=== PATIENT | male | born 1975 | race Caucasian/White ===

== ENCOUNTER 2023-09-17 17:47 | Emergency (ER) | payer SELFPAY ==
--- NOTE | ~2023-09-17 | XR_ITS ---
EXAMINATION: XR chest 2V DATE: 09/17/2023 18:46 INDICATION: Chest pain TECHNIQUE: PA and lateral views of the chest were obtained. COMPARISON: None FINDINGS: The lungs are clear with no focal airspace opacities, pulmonary edema, pleural effusion or pneumothor ax. The cardiomediastinal silhouette is normal. Visualized bones and soft tissues are unremarkable. IMPRESSION: 1. No acute cardiopulmonary disease. Reviewed, dictated and finalized at location A.
--- NOTE | ~2023-09-17 | CT_ITS ---
EXAMINATION: CT brain wo con DATE: 09/17/2023 19:46 INDICATION: Seizure TECHNIQUE: Computed tomography (CT) of the head was performed without intravenous contrast. Sagittal and coronal reconstructions were performed. The mA was adjusted according to patient size. Iterative reconstruction technique was employed. The dose-length product was 756.67 mGy-cm. COMPARISON: None FINDINGS: No acute intracranial hemorrhage, acute infarction or abnormal extra axial fluid collection. Symmetri c prominence of the sulci and subarachnoid spaces overlying the convexities and about the cerebellum consistent with mild cerebral and cerebellar volume loss which is disproportionate for age. Ventricl es are normal and symmetric. No mass/mass effect. Prominent mucous retention cyst in the right maxill odette sinus. The orbits and mastoid air cells are normal. IMPRESSION: 1. Mild diffuse volume loss of indeterminate etiology which is disproportionate for age. No acute int racranial process. Reviewed, dictated and finalized at location A. IMPRESSION: 1. Mild diffuse volume loss of indeterminate etiology which is disproportionate for age. No acute intracranial process.
[2023-09-17 17:50] VITALS: PULSE 86; TEMP 36.4
--- NOTE | 2023-09-17 17:53 | ECG_ITS ---
Measurements Intervals Arrey Rate: 80 P: 22 DC: 201 QRS: -27 QRSD: 110 T: 113 QT: 401 QTc: 465 Interpretive Statements SINUS RHYTHM POSSIBLE LEFT ATRIAL ENLARGEMENT LEFT VENTRICULAR HYPERTROPHY AND ST-T CHANGE MINIMAL Q WAVES- HIGH LATERAL LEADS BORDERLINE ECG NO PREVIOUS ECG AVAILABLE FOR COMPARISON Electronically Signed On 09-17-2023 18:42:23 CDT by Seth Obregon D.O.
[2023-09-17 18:15] LABS: Basophils Absolute Auto 0.1 K/mm3 (0.0-0.1); Basophils Percent Auto 0.5 % (0.2-1.2); Eosinophils Percent Auto 0.3 % (0-4.4); Hematocrit 33.3 % (42.0-52.0); Hemoglobin 10.8 g/dL (14.0-18.0); Immature Granulocyte Absolute 0.09 K/mm3 (0.00-0.031); Immature Granulocyte Percent A 0.9 % (0-0.5); Lymphocytes Absolute Auto 2.24 K/mm3 (0.9-3.2); Lymphocytes Percent Auto 22.9 % (18.3-44.2); Mean Corpuscular HGB Conc 32.4 g/dl (32-36); Mean Corpuscular Hemoglobin 30.3 pg (26-34); Mean Corpuscular Volume 93.3 fl (80-100); Mean Platelet Volume 8.5 fl (7.4-10.4); Monocytes Absolute Auto 0.6 K/mm3 (0.1-0.6); Monocytes Percent Auto 5.8 % (2.6-8.5); Neutrophils Absolute Auto 6.8 K/mm3 (1.3-6.7); Neutrophils Percent Auto 69.6 % (45.5-73.1); Platelet Count Result 403 k/mm3 (150-375); Red Blood Count 3.57 M/mm3 (4.6-6.20); Red Cell Distribution Width 15.5 % (11.5-14.5); White Blood Count 9.8 K/mm3 (4.5-10.0)
[2023-09-17 18:25] LABS: INR 1.1; Prothrombin Time 14.4 Seconds (11.1-14.7)
[2023-09-17 18:26] LABS: Alanine Aminotransferase 13 U/L (6-50); Alkaline Phosphatase 146 U/L (38-126); Anion Gap 9 mmol/L (8-16); Aspartate Amino Transferase 41 U/L (17-59); Bilirubin,Total 0.4 mg/dL (0.2-1.3); Blood Urea Nitrogen 3 mg/dL (9-20); Carbon Dioxide 30 mmol/L (22-30); Chloride 103 mmol/L (98-107); Estimated Glomerular Filt Rate > 60; Glucose 100 mg/dL (65-110); Lipase 49 U/L (23-300); Partial Thromboplastin Time 39.8 SECONDS (22.3-36.8); Potassium 4.1 mmol/L (3.4-5.0); Sodium 142 mmol/L (137-145)
[2023-09-17 18:38] LABS: Troponin I < 0.012 ng/mL (0.000-0.034)
[2023-09-17 18:42] LABS: Ethanol 391 mg/dL (<10)
--- NOTE | 2023-09-17 19:05 | ED.SEIZURE ---
HPI - Seizure General Chief Complaint: Chest Pain Stated Complaint: chest pain Time Seen by Provider: 09/17/23 18:54 Course Vital Signs Vital signs: Vital Signs Temperature 97.5 F L 09/17/23 17:50 Pulse Rate 86 09/17/23 17:50 Temperature 97.5 F L 09/17/23 17:50 Pulse Rate 86 09/17/23 17:50 MDM - Seizure Lab Data 09/17/23 18:06 09/17/23 18:06 Labs: Lab Results 09/17/23 09/17/23 Range/Units 18:06 18:09 WBC 9.8 (4.5-10.0) K/mm3 RBC 3.57 L (4.6-6.20) M/mm3 Hgb 10.8 L (14.0-18.0) g/dL Hct 33.3 L (42.0-52.0) % MCV 93.3 (80-100) fl MCH 30.3 (26-34) pg MCHC 32.4 (32-36) g/dl RDW 15.5 H (11.5-14.5) % Plt Count 403 H (150-375) k/mm3 MPV 8.5 (7.4-10.4) fl Immature Gran % (Auto) 0.9 H (0-0.5) % Neut % (Auto) 69.6 (45.5-73.1) % Lymph % (Auto) 22.9 (18.3-44.2) % Beckham % (Auto) 5.8 (2.6-8.5) % Eos % (Auto) 0.3 (0-4.4) % Baso % (Auto) 0.5 (0.2-1.2) % Lymph # (Auto) 2.24 (0.9-3.2) K/mm3 Beckham # (Auto) 0.6 (0.1-0.6) K/mm3 Eos # (Auto) 0.0 (0-0.3) K/mm3 Baso # (Auto) 0.1 (0.0-0.1) K/mm3 Abs Immat Gran (auto) 0.09 H (0.00-0.031) K/mm3 Absolute Neuts (auto) 6.8 H (1.3-6.7) K/mm3 Absolute Nucleated RBC 0.0 (0.0-0.012) K/mm3 Nucleated RBC % 0.0 (0.0-0.2) % PT 14.4 (11.1-14.7) Seconds INR 1.1 APTT 39.8 H (22.3-36.8) SECONDS Sodium 142 (137-145) mmol/L Potassium 4.1 (3.4-5.0) mmol/L Chloride 103 (98-107) mmol/L Carbon Dioxide 30 (22-30) mmol/L Anion Gap 9 (8-16) mmol/L BUN 3 L (9-20) mg/dL Creatinine 0.70 (0.7-1.3) mg/dL Estim Creat Clear Calc Not Reportable Estimated GFR > 60 (59 - ) Glucose 100 (65-110) mg/dL Calcium 9.0 (8.4-10.2) mg/dL Total Bilirubin 0.4 (0.2-1.3) mg/dL AST 41 (17-59) U/L ALT 13 (6-50) U/L Alkaline Phosphatase 146 H (38-126) U/L Troponin I < 0.012 (0.000-0.034) ng/mL Total Protein 10.0 H (6.3-8.2) g/dL Albumin 4.0 (3.5-5.1) g/dL Lipase 49 (23-300) U/L Ethyl Alcohol 391 H* (<10) mg/dL Discharge Plan Discharge Follow-up/Referrals: PHYSICIAN,[employer] [facility] [Primary Care Provider] -
--- NOTE | 2023-09-17 19:06 | ED.GENADULT ---
HPI - General Adult General Chief complaint: Chest Pain Stated complaint: chest pain Time Seen by Provider: 09/17/23 18:54 History of Present Illness HPI narrative: Patient is a 47-year-old male with history of ETOH use, arthritis here with chest pain and concern for possible seizure. Patient states that he was drinking fairly heavily last night, today he woke up and he was [place] on the side of the road [place]. He states that he felt weird at that time and was unsure of how he lost approximately 4 hours of his life. He states that did have a seizure last year, is unsure if he had 1 today. He denies any urinary incontinence. He denies any trauma. Denies crushing his vehicle. He states that he was having some chest pain on arrival to the emergency department which has resolved. Denies history of coronary artery disease or CT. Related Data Allergies Allergy/AdvReac Type Severity Reaction Status Date / Time No Known Allergies Allergy Verified 09/17/23 19:30 Review of Systems Review of Systems: All systems reviewed & are unremarkable except as noted in HPI and below Exam Narrative: GENERAL: Well-appearing, well-nourished, and in no acute distress. HEAD: Normocephalic, atraumatic. EYES: PERRLA and EOMI. ENT: Nares clear. Mucous membranes moist. NECK: Supple. CHEST: Clear to auscultation. No respiratory distress. HEART: Regular rate and rhythm. Normal peripheral pulses. ABDOMEN: Soft, nontender, nondistended. EXTREMITIES: Normal range of motion. No edema. SKIN: Warm, dry, no rash. NEURO: No focal deficits. Alert and oriented x3. PSYCH: Normal mood and affect. Course Course Emergency Course: Chart review performed. Patient reportedly here with chief complaint of chest pain however triage note states patient had a seizure today. Triage lab work reviewed. CBC grossly normal, CMP within normal limits, initial troponin negative. ETOH 391. No prior visits in our ED. Patient seen evaluated, nontoxic appearing. He does appear to be clinically sober at this time. Will do CT head for possible seizure however I believe this is unlikely. A suspect that his loss of a period of time was likely due to his heavy alcohol use. Initial troponin was negative. Will do repeat troponin. Anticipate discharge to a sober ride after imaging and troponin have resulted if they are normal. CT head negative. Repeat troponin negative. Heart score of 2. The results of pertinent diagnostic studies and exam findings were discussed. Extensive conversation had with patient and myself regarding drinking and driving. The patient?s provisional diagnosis and plan of care were discussed with the patient and present family. The patient and/or present family expressed understanding of the diagnosis and plan. The nurse was instructed to provide written instructions and appropriate follow-up information. The patient understands their need and responsibility to obtain additional follow-up as instructed. The risks of medications administered and prescribed were discussed with the patient and family present. Vital Signs Vital signs: Vital Signs Temperature 97.5 F L 09/17/23 17:50 Pulse Rate 86 09/17/23 17:50 Temperature 98.6 F 09/17/23 22:26 Pulse Rate 100 09/17/23 22:26 Respiratory Rate 16 09/17/23 22:26 Blood Pressure 126/80 09/17/23 22:26 Pulse Oximetry 94 09/17/23 22:26 Oxygen Delivery Room Air 09/17/23 19:21 Medical Decision Making Vital Signs Vital Signs: Vital Signs Temperature 97.5 F L 09/17/23 17:50 Pulse Rate 86 09/17/23 17:50 Temperature 98.6 F 09/17/23 22:26 Pulse Rate 100 09/17/23 22:26 Respiratory Rate 16 09/17/23 22:26 Blood Pressure 126/80 09/17/23 22:26 Pulse Oximetry 94 09/17/23 22:26 Oxygen Delivery Room Air 09/17/23 19:21 Lab Data 09/17/23 18:06 09/17/23 18:06 Labs: Lab Results 09/17/23
[2023-09-17 19:21] VITALS: PULSE 82; O2SAT 100
[2023-09-17 19:22] VITALS: BP 151/91; BP 153/87; PULSE 78; PULSE 85; RESP 15; RESP 20; TEMP 36.3; O2SAT 98; O2SAT 99
[2023-09-17 20:39] VITALS: BP 124/71; PULSE 104; RESP 15; O2SAT 100
[2023-09-17 21:37] LABS: Troponin I 0.017 ng/mL (0.000-0.034)
[2023-09-17 22:26] VITALS: BP 126/80; PULSE 100; RESP 16; TEMP 37; O2SAT 94
== END 2023-09-17 22:27 | disposition home or self-care (01) ==
PROVIDERS: Emergency Medicine; Emergency Provider Student in an Organized Health Care Education/Training Program
DX: R07.9 Chest pain, unspecified (principal); F10.129 Alcohol abuse with intoxication, unspecified; Y90.8 Blood alcohol level of 240 mg/100 ml or more; M19.90 Unspecified osteoarthritis, unspecified site; I51.7 Cardiomegaly; R94.31 Abnormal electrocardiogram [ECG] [EKG]
CPT/HCPCS: 36415; 70450; 71046; 80053; 80307; 83690; 84484; 85025; 85610; 85730; 93005; 99284